=== PATIENT | female | born 1990 | race Caucasian/White ===

== ENCOUNTER 2019-03-07 22:07 | Emergency (ER) | payer OTHER ==
[~2019-03-07] VITALS: Ht 172.7 cm; Wt 85.3 kg
[2019-03-07 22:16] VITALS: Ht 172.7 cm; Wt 85.3 kg
[2019-03-07 23:25] VITALS: BP 124/70
== END 2019-03-07 23:25 | disposition home or self-care (01) ==
LOC: ED 22:07
DX: S63.602A Unspecified sprain of left thumb, initial encounter (principal); W22.8XXA Striking against or struck by other objects, initial encounter; Y93.89 Activity, other specified; Y92.89 Other specified places as the place of occurrence of the external cause; Y99.8 Other external cause status
CPT/HCPCS: A4570

== ENCOUNTER 2019-11-16 23:05 | Emergency (ER) | payer OTHER, SELFPAY ==
[~2019-11-16] VITALS: Ht 172.7 cm; Wt 83.9 kg
[2019-11-16 23:06] VITALS: Ht 172.7 cm; Wt 83.9 kg
[2019-11-17 00:30] VITALS: BP 99/62
== END 2019-11-17 00:30 | disposition home or self-care (01) ==
LOC: ED 23:05
DX: U07.1 COVID-19 (principal); J45.909 Unspecified asthma, uncomplicated
CPT/HCPCS: U0003-CS

== ENCOUNTER 2020-03-04 11:57 | Emergency (ER) | payer OTHER ==
[~2020-03-04] VITALS: Ht 172.7 cm; Wt 90.3 kg
[2020-03-04 12:25] VITALS: Ht 172.7 cm; Wt 90.3 kg
[2020-03-04 15:13] LABS: CALCIUM 8.8 mg/dL (8.5-10.1); CARBON DIOXIDE 28.5 mmol/L (21-32); CHLORIDE SERUM 102 mmol/L (98-107); CREATININE SERUM 0.7 mg/dL (0.6-1.0); GFR1 > 60 mL/min; GLUCOSE SERUM 126 mg/dL (74-106); POTASSIUM SERUM 3.4 mmol/L (3.5-5.1); SODIUM SERUM 136 mmol/L (136-145)
[2020-03-04 15:16] LABS: ALBUMIN 3.9 g/dL (3.4-5.0); ALKALINE PHOSPHATASE 52 U/L (46-116); ALT/SGPT 20 U/L (14-59); AST/SGOT 19 U/L (15-37); BILIRUBIN TOTAL 0.4 mg/dL (0.20-1.00); LIPASE 105 IU/L (73-393); TOTAL PROTEIN, SERUM 7.7 g/dL (6.4-8.2)
[2020-03-04 15:18] LABS: BASOPHIL % 0.3 % (0-2); PLATELET COUNT 338 x10^3mcL (130-400); RED CELL DISTRIBUTION WIDTH 16.1 % (11.5-14.5)
[2020-03-04 16:25] LABS: microscopic required? YES; urine erythrocyte 3+ (NEGATIVE)
[2020-03-04 17:50] VITALS: BP 112/72
== END 2020-03-04 17:50 | disposition home or self-care (01) ==
LOC: ED 11:57
PROVIDERS: Emergency Medicine
DX: N39.0 Urinary tract infection, site not specified (principal); N73.9 Female pelvic inflammatory disease, unspecified; Z88.0 Allergy status to penicillin; J45.909 Unspecified asthma, uncomplicated
CPT/HCPCS: 87491; 87591; J0696; Q9967